=== PATIENT | male | born 1995 | race Caucasian/White ===

== ENCOUNTER 2023-12-05 14:18 | Emergency (ER) | payer MEDICAID ==
[~2023-12-05] VITALS: Ht 154.9 cm; Wt 59.0 kg
[2023-12-05 14:33] VITALS: BP 132/78; PULSE 80; RESP 16; TEMP 98.1; O2SAT 99
[2023-12-05] MEDS ORDERED: BO1 TP (14:48)
== END 2023-12-05 15:41 | disposition home or self-care (01) ==
LOC: ER 14:18
DX: T25.221A Burn of second degree of right foot, initial encounter (principal); X10.2XXA Contact with fats and cooking oils, initial encounter; Y93.89 Activity, other specified; Y92.89 Other specified places as the place of occurrence of the external cause; Y99.8 Other external cause status
CPT/HCPCS: 16020; 99282

== ENCOUNTER 2023-12-12 17:18 | Emergency (ER) | payer MEDICAID ==
[~2023-12-12] VITALS: Ht 154.9 cm; Wt 66.0 kg
[~2023-12-12 17:18] MED LIST: BO1 TP
[2023-12-12 17:29] VITALS: O2SAT 98
[2023-12-12] MEDS ORDERED: ACET-2708 MT (17:57)
[2023-12-12 18:22] VITALS: BP 128/72; PULSE 82; RESP 14; TEMP 98.8
== END 2023-12-12 18:25 | disposition home or self-care (01) ==
LOC: ER 17:18
DX: L53.9 Erythematous condition, unspecified (principal)
CPT/HCPCS: 99281